=== PATIENT | male | born 1990 | race Caucasian/White ===

== ENCOUNTER 2021-12-07 23:56 | Emergency (ER) | payer OTHER ==
--- NOTE | 2021-12-08 00:02 | ED ---
Alcohol HPI - General Stated Complaint: Chest pain Time Seen by Provider: 12/07/21 23:58 Source: RN notes reviewed, old records reviewed Limitations: no limitations - History of Present Illness Initial Comments: This is a 31-year-old male DF for evaluation of chest pain. Patient has no medical history takes no medications presented with left-sided chest pain just prior to arrival. No nausea no shortness of breath no other complaints. No prior history of similar chest pain no trauma. 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 ROS Other: All systems not noted in ROS Statement are negative. General Exam General appearance: alert, in no apparent distress Head exam: Present: atraumatic, normocephalic, normal inspection Eye exam: Present: normal appearance, PERRL, EOMI. Absent: scleral icterus, conjunctival injection, periorbital swelling ENT exam: Present: normal exam, mucous membranes moist Neck exam: Present: normal inspection. Absent: tenderness, meningismus, lymphadenopathy Respiratory exam: Present: normal lung sounds bilaterally. Absent: respiratory distress, wheezes, rales, rhonchi, stridor Cardiovascular Exam: Present: regular rate, normal rhythm, normal heart sounds. Absent: systolic murmur, diastolic murmur, rubs, gallop, clicks GI/Abdominal exam: Present: soft, normal bowel sounds. Absent: distended, tenderness, guarding, rebound, rigid Extremities exam: Present: normal inspection, full ROM, normal capillary refill. Absent: tenderness, pedal edema, joint swelling, calf tenderness Back exam: Present: normal inspection Neurological exam: Present: alert, oriented X3, CN II-XII intact Psychiatric exam: Present: normal affect, normal mood Skin exam: Present: warm, dry, intact, normal color. Absent: rash Course Vital Signs 12/08/21 12/08/21 00:00 01:30 Temperature 97.9 F Pulse Rate 74 80 Respiratory 16 Rate Blood Pressure 117/69 130/68 O2 Sat by Pulse 98 Oximetry - Reevaluation(s) Reevaluation #1: 12/08/21 01:30 Medical records reviewed Reevaluation #2: 12/08/21 01:30 Patient informed results and questions answered Reevaluation #3: 12/08/21 01:30 Patient feels good for discharge home, symptoms improved Medical Decision Making - Medical Decision Making 31 male to the emergency department with atypical chest pain x-ray and EKG and negative. Patient is in no acute distress here in the ER and can be discharged - EKG Data -: EKG Interpreted by Me (EKG is sinus rhythm 61 DC 172 QRS 107 QTc 408) - Radiology Data Radiology results: report reviewed (Chest x-rays negative for acute disease), image reviewed Disposition Clinical Impression: Atypical chest pain, Chest pain Disposition: HOME SELF-CARE Condition: Fair Instructions (If sedation given, give patient instructions): Chest Pain (ED) Is patient prescribed a controlled substance at d/c from ED?: No Referrals: None,Stated [Primary Care Provider] - 1-2 days Time of Disposition: 01:30
[2021-12-08 00:08] VITALS: RESP 16; TEMP 97.9
--- NOTE | 2021-12-08 01:13 | XR ---
EXAMINATION TYPE: XR chest 1V portable DATE OF EXAM: 12/08/2021 COMPARISON: NONE HISTORY: Chest pain TECHNIQUE: Single view FINDINGS: Heart and mediastinum are normal. Lungs are clear. Diaphragm is normal. Bony thorax is inta ct. IMPRESSION: Normal chest
[2021-12-08 03:49] VITALS: BP 130/68; PULSE 80
== END 2021-12-08 01:30 | disposition home or self-care (01) ==
LOC: EC 23:56
DX: R07.89 Other chest pain (principal)
CPT/HCPCS: 71045; 93005; 99285

== ENCOUNTER 2022-08-26 18:16 | Inpatient (IN) | payer MEDICAID, OTHER ==
[2022-08-26 20:16] LABS: Amphetamine Screen,Urine Detected (NotDetected); Barbiturate Screen,Urine Not Detected (NotDetected); Benzodiazepines Screen,Urine Not Detected (NotDetected); Cocaine Screen,Urine Not Detected (NotDetected); Methadone Screen, Urine Not Detected (NotDetected); Opiate Screen,Urine Not Detected (NotDetected); Oxycodone Screen, Urine Not Detected (NotDetected); Phencyclidine Screen,Urine Not Detected (NotDetected); Tricyclic Antidepressant,Urine Not Detected (NotDetected); Urn Cannabinoid Scrn Not Detected (NotDetected)
--- NOTE | 2022-08-26 23:17 | ED ---
Psych HPI - General Chief Complaint: Psychiatric Symptoms Stated Complaint: Suicidal Time Seen by Provider: 08/26/22 18:25 Source: patient, EMS Mode of arrival: EMS - History of Present Illness Initial Comments: 32-year-old male presents to the emergency department reporting suicidal ideations. States that he has a plan to overdose on "dope". He did not do anything to harm himself today. Does admit to a history of depression. Does admit that he has been previously hospitalized for depression. He denies taking any prescription medications. Does not follow with a psychiatrist currently. Denies drug or alcohol use. No homicidal ideations. No other alleviating, precipitating or modifying factors - Related Data Previous Rx's Medication Instructions Recorded Multivitamins, Thera [Multivitamin 1 each PO DAILY 30 Days #30 tab 08/30/22 (formulary)] Nicotine 14Mg/24Hr Patch [Habitrol] 1 patch TRANSDERM DAILY 15 Days 08/30/22 #15 patch Pantoprazole [Protonix] 40 mg PO AC-BID 30 Days #60 tab 08/30/22 QUEtiapine [SEROquel] 150 mg PO HS 30 Days #90 tab 08/30/22 Sertraline [Zoloft] 150 mg PO DAILY 30 Days #90 tab 08/30/22 Thiamine [Vitamin B-1] 100 mg PO DAILY 30 Days #30 tab 08/30/22 Allergies Allergy/AdvReac Type Severity Reaction Status Date / Time No Known Allergies Allergy Unverified 08/26/22 19:54 Review of Systems ROS Statement: Those systems with pertinent positive or pertinent negative responses have been documented in the HPI. ROS Other: All systems not noted in ROS Statement are negative. Past Medical History Additional Past Medical History / Comment(s): heart murmur History of Any Multi-Drug Resistant Organisms: None Reported Past Psychological History: Anxiety, Depression Smoking Status: Current every day smoker Past Alcohol Use History: Occasional Past Drug Use History: Marijuana General Exam Limitations: no limitations General appearance: alert, in no apparent distress Head exam: Present: atraumatic, normocephalic, normal inspection Eye exam: Present: normal appearance, PERRL, EOMI. Absent: scleral icterus, conjunctival injection, periorbital swelling ENT exam: Present: normal exam, mucous membranes moist Neck exam: Present: normal inspection. Absent: tenderness, meningismus, lymphadenopathy Respiratory exam: Present: normal lung sounds bilaterally. Absent: respiratory distress, wheezes, rales, rhonchi, stridor Cardiovascular Exam: Present: regular rate, normal rhythm, normal heart sounds. Absent: systolic murmur, diastolic murmur, rubs, gallop, clicks GI/Abdominal exam: Present: soft, normal bowel sounds. Absent: distended, tenderness, guarding, rebound, rigid Extremities exam: Present: normal inspection, full ROM, normal capillary refill. Absent: tenderness, pedal edema, joint swelling, calf tenderness Back exam: Present: normal inspection Neurological exam: Present: alert, oriented X3, CN II-XII intact Psychiatric exam: Present: depressed, flat affect Skin exam: Present: warm, dry, intact, normal color. Absent: rash Course Vital Signs 08/26/22 08/26/22 18:23 22:38 Temperature 98.3 F Pulse Rate 89 95 Respiratory 18 18 Rate Blood Pressure 119/72 126/88 O2 Sat by Pulse 99 99 Oximetry Medical Decision Making - Medical Decision Making Was pt. sent in by a medical professional or institution ( PA, SLAT BASKET MAKER HELPER MACHINE, urgent care, hospital, or usp...) When possible be specific @ -No Did you speak to anyone other than the patient for history (EMS, parent, family, police, friend...)? What history was obtained from this source @ -Police Did you review nursing and triage notes (agree or disagree)? Why? @ -I reviewed and agree with nursing and triage notes Were old charts reviewed (outside hosp., previous admission, EMS record, old EKG, old radiological studies, urgent care reports/EKG's, usp records)? Report findings @ -No old charts were reviewed Differential Diagnosis (chest pain, altered mental status, abdominal pain women, abdominal pain men, vaginal bleeding, weakness, fever, dyspnea, syncope, headache, dizziness, GI bleed, back pain, seizure, CVA, palpatations, mental health, musculoskeletal)? @ -depression, anxiety, suicidal ideations, drug use EKG interpreted by me (3pts min.). @ -no X-rays interpreted by me (1pt min.). @ -no CT interpreted by me (1pt min.). @ -None done U/S interpreted by me (1pt. min.). @ -None done What testing was considered but not performed or refused? (CT, X-rays, U/S, labs)? Why? @ -None What meds were considered but not given or refused? Why? @ -None Did you discuss the management of the patient with other professionals (professionals i.e. , PA, SLAT BASKET MAKER HELPER MACHINE, lab, RT, psych nurse, social research assistant, guest house manager, teacher, armoured corps officer, egg caser)? Give summary @ -EPS nurse Was smoking cessation discussed for >3mins.? @ -No Was critical care preformed (if so, how long)? @ -No Were there social determinants of health that impacted care today? How? (Homelessness, low income, unemployed, alcoholism, drug addiction, transportation, low edu. Level, literacy, decrease access to med. care, penitentiary, rehab)? @ -homelessness Was there de-escalation of care discussed even if they declined (Discuss DNR or withdrawal of care, Hospice)? DNR status @ -No What co-morbidities impacted this encounter? (DM, HTN, Smoking, COPD, CAD, Cancer, CVA, ARF, Chemo, Hep., AIDS, mental health diagnosis, sleep apnea, morbid obesity)? @ -None Was patient admitted / discharged? Hospital course, mention meds given and route, prescriptions, significant lab abnormalities, going to OR and other pertinent info. @ -Upon arrival patient was placed into room 11. History and physical exam is performed. His BAT is negative. He is awaiting psychiatric evaluation at this time Undiagnosed new problem with uncertain prognosis? @ -No Drug Therapy requiring intensive monitoring for toxicity (Heparin, Nitro, Insulin, Cardizem)? @ -No Were any procedures done? @ -No Diagnosis/symptom? @ -acute suicidal ideations Acute, or Chronic, or Acute on Chronic? @ -acute Uncomplicated (without systemic symptoms) or Complicated (systemic symptoms)? @ -complicated Side effects of treatment? @ -No Exacerbation, Progression, or Severe Exacerbation? @ -No Poses a threat to life or bodily function? How? (Chest pain, [place], [place], pneumonia, PE, COPD, DKA, ARF, appy, cholecystitis, CVA, Diverticulitis, Homicidal, Suicidal, threat to staff... and all critical care pts) @ -yes - Lab Data Result diagrams: 08/28/22 06:59 08/28/22 06:59 Lab Results 08/26/22 08/26/22 Range/Units 19:20 19:20 Urine Color Yellow Urine Appearance Clear (Clear) Urine pH 7.0 (5.0-8.0) Ur Specific [place] 1.032 (1.001-1.035) Urine Protein Trace H (Negative) Urine Glucose (UA) Negative (Negative) Urine Ketones 1+ H (Negative) Urine Blood Negative (Negative) Urine Nitrite Negative (Negative) Urine Bilirubin Negative (Negative) Urine Urobilinogen 6.0 (<2.0) mg/dL Ur Leukocyte Esterase Negative (Negative) Urine Opiates Screen Not Detected (NotDetected) Ur Oxycodone Screen Not Detected (NotDetected) Urine Methadone Screen Not Detected (NotDetected) Ur Propoxyphene Screen Not Detected (NotDetected) Ur Barbiturates Screen Not Detected (NotDetected) U Tricyclic Antidepress Not Detected (NotDetected) Ur Phencyclidine Scrn Not Detected (NotDetected) Ur Amphetamines Screen Detected H (NotDetected) U Methamphetamines Scrn Detected H (NotDetected) U Benzodiazepines Scrn Not Detected (NotDetected) Urine Cocaine Screen Not Detected (NotDetected) U Marijuana (THC) Screen Not Detected (NotDetected) Disposition Clinical Impression: Depression Disposition: TRANSFER TO PSYCH HOSP/UNIT Condition: Stable Is patient prescribed a controlled substance at d/c from ED?: No
[2022-08-27] MEDS ORDERED: HALOPERIDOL LACTATE 5 MG/ML 1 ML VIAL IM PRN (00:44)
[2022-08-27] MEDS ORDERED: MAGNESIUM HYDROXIDE 2,400 MG/10 ML CUP PO PRN (00:44)
[2022-08-27] MEDS ORDERED: MAG HYDROX/AL HYDROX/SIMETH 30 ML CUP PO PRN (00:44)
[2022-08-27] MEDS ORDERED: LORazepam 1 MG TAB PO PRN (00:44)
[2022-08-27] MEDS ORDERED: ACETAMINOPHEN TAB 325 MG TAB PO PRN (00:44)
[2022-08-27] MEDS ORDERED: LORazepam 2 MG/ML INJ IM PRN ×2 (00:50→09:54)
[2022-08-27] MEDS ORDERED: haloperidoL 5 MG TAB PO PRN (00:51)
[2022-08-27 02:56] LABS: Appearance,Urine Clear (Clear); Bilirubin,Urine Negative (Negative); Blood,Urine Negative (Negative); Color,Urine Yellow; Glucose,Urine (UA) Negative (Negative); Ketones,Urine 1+ (Negative); Leukocyte Esterase,Urine Negative (Negative); Nitrite,Urine Negative (Negative); Protein,Urine Trace (Negative); Specific Gravity,Urine 1.032 (1.001-1.035)
[2022-08-27] MEDS: NICOTINE 14MG/24HR PATCH TRANSDERM SCH (03:07)
[2022-08-27] MEDS ORDERED: hydrOXYzine pamoate 25 MG CAP PO PRN (09:53)
[2022-08-27] MEDS ORDERED: SERTRALINE 50 MG TAB PO STA (11:16)
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
[2022-08-28] MEDS: QUEtiapine 200 MG TAB PO SCH ×2 (03:20→20:24)
[2022-08-28 06:42] VITALS: RESP 16
[2022-08-28 07:26] LABS: Basophils % (A) 1 %; Eosinophils # (A) 0.1 k/uL (0-0.7); Eosinophils % (A) 2 %; HCT 41.1 % (39.0-53.0); Lymphocytes # (A) 1.7 k/uL (1.0-4.8); Lymphocytes % (A) 31 %; MCH 31.5 pg (25.0-35.0); MCV 92.5 fL (80.0-100.0); Mean Platelet Volume 8.4; Monocytes # (A) 0.3 k/uL (0-1.0); Monocytes % (A) 5 %; Neutrophils # (A) 3.2 k/uL (1.3-7.7); Neutrophils % (A) 60 %; Platelet Count 178 k/uL (150-450); RBC 4.45 m/uL (4.30-5.90); RDW 13.6 % (11.5-15.5); WBC 5.4 k/uL (3.8-10.6)
[2022-08-28 08:08] LABS: ALT 53 U/L (4-49); AST 34 U/L (17-59); African American GFR (CKD) >90 (>60 ml/min/1.73 sqM); Albumin 3.6 g/dL (3.5-5.0); Alkaline Phosphatase 65 U/L (38-126); Anion Gap 2 mmol/L; Blood Urea Nitrogen 11 mg/dL (9-20); Calcium 8.8 mg/dL (8.4-10.2); Carbon Dioxide 30 mmol/L (22-30); Chloride 107 mmol/L (98-107); Glucose 94 mg/dL (74-99); Non-African American GFR(CKD) >90 (>60 ml/min/1.73 sqM); Potassium 4.5 mmol/L (3.5-5.1); Sodium 139 mmol/L (137-145); Total Bilirubin 0.6 mg/dL (0.2-1.3); Total Protein 6.2 g/dL (6.3-8.2)
[2022-08-28] MEDS: SERTRALINE 100 MG TAB PO SCH (08:16)
[2022-08-28] MEDS: NICOTINE 14MG/24HR PATCH TRANSDERM SCH (08:16)
[2022-08-28] MEDS: THIAMINE 100 MG TAB PO SCH (08:16)
[2022-08-28] MEDS: MULTIVITAMINS, THERA 1 EACH TAB PO SCH (08:16)
[2022-08-28 13:32] LABS: Chol/HDL Ratio 3.43 Ratio; LDL Cholesterol,Calculated 88.4 mg/dL (0.0-131.0); VLDL Calculation 19.34 mg/dL (5.00-40.00)
[2022-08-28] MEDS: PANTOPRAZOLE 40 MG TABLET PO SCH (20:44)
[2022-08-29] MEDS: MULTIVITAMINS, THERA 1 EACH TAB PO SCH (08:36)
[2022-08-29] MEDS: PANTOPRAZOLE 40 MG TABLET PO SCH ×2 (08:36→17:05)
[2022-08-29] MEDS: THIAMINE 100 MG TAB PO SCH (08:36)
[2022-08-29] MEDS: NICOTINE 14MG/24HR PATCH TRANSDERM SCH (08:36)
[2022-08-29] MEDS: SERTRALINE 100 MG TAB PO SCH (08:36)
--- NOTE | 2022-08-29 15:56 | P.PN ---
Progress Note - Text Progress Note Date: 08/28/22 Interval history: I evaluated patient on 08/28/22. Patient was seen walking the hallway and was directable and agreeable to speak with teletypewriter installer. He complains of having a difficulty time focusing, reports good sleep and fair appetite. His Zoloft was increased to 100 mg daily this morning for depression and anxiety. He complaints of anxious thoughts. He requests Ritalin and Adderall for inattention. We discussed using Vistaril for anxiety and he expresses agreement. At this time, patient denies any suicidal or homicidal ideation, intent or plan. Denies any auditory or visual hallucinations. Patient denies any side effects from the medications and has been compliant with meds. Mental status exam: General Appearance: Patient appears to be stated age, mildly disheveled. Behavior: No agitated behavior. Patient is calm and directable. Speech: Patient's speech is fluent and non-pressured. Mood/Affect: Mood is anxious, affect is congruent and constricted. Suicidality/Homicidality: Patient denies having any suicidal or homicidal ideation intent or plan. Perceptions: Patient denies any auditory or visual hallucinations. Though content/process: There is no evidence of any delusional thought content and thought process is linear and goal-directed. Memory and concentration: AOX3, grossly intact for the purposes of this session. Judgment and insight: Improving mildly Assessment/Plan: Continue with current diagnosis. Patient continues to meet criteria for inp atient psychiatric admission for symptom stabilization and safety. Zoloft increased to 100 mg daily this morning as ordered by primary psychiatrist. Continue Seroquel 200 mg QHS for mood. Continue Vistaril 50 mg Q6H PRN for anxiety; he has not been using this. Monitor for medication compliance and for any psychotropic medication side effects. Will continue to monitor ongoing response to treatment. Encouraged participation in milieu.
--- NOTE | 2022-08-29 17:13 | P.PN ---
Progress Note - Text Progress Note Date: 08/29/22 Interval history: I evaluated patient on 08/29/22. Patient was seen asleep in bed, reported he feels very tired, and later was seen walking in the hallway and was directable and agreeable to speak with copy writer. He complains of sleeping too much here and at home. He reports he sleeps between 12-17 hours per day. His sleep chart was reviewed and he slept about 14 hours on the night of 08/27-08/28 and about 10 hours on the night of 08/28-08/29. He reports his mood is good, but he feels "really tired" and "exhausted". He reports difficulty focusing and has difficulty staying awake. He again requests stimulants, but we discussed he can be referred to a sleep medicine clinic for sleep study to evaluate for ideopathic hypersomnia. At this time, patient denies any suicidal or homicidal ideation, intent or plan. Denies any auditory or visual hallucinations. Patient denies any side effects from the medications and has been compliant with meds. Mental status exam: General Appearance: Patient appears to be stated age, mildly disheveled. Behavior: No agitated behavior. Patient is calm and directable. Yawning. Speech: Patient's speech is fluent and non-pressured. Mood/Affect: Mood is anxious with irritable edge, affect is congruent and constricted. Suicidality/Homicidality: Patient denies having any suicidal or homicidal ideation intent or plan. Perceptions: Patient denies any auditory or visual hallucinations. Though content/process: There is no evidence of any delusional thought content and thought process is linear and goal-directed. Memory and concentration: AOX3, grossly intact for the purposes of this session. Judgment and insight: Improving mildly Assessment/Plan: Continue with current diagnosis. Patient continues to meet criteria for inpatient psychiatric admission for symptom stabilization and safety. Continue Zoloft 100 mg daily for depression/anxiety. Continue Seroquel 200 mg QHS for mood. Continue Vistaril 50 mg Q6H PRN for anxiety; he has not been using this. Monitor for medication compliance and for any psychotropic medication side ef fects. Recommend referral to sleep medicine for sleep study to evaluate for idiopathic hypersomnia. Will continue to monitor ongoing response to treatment. Encouraged participation in milieu.
[2022-08-29] MEDS: QUEtiapine 200 MG TAB PO SCH (20:31)
--- NOTE | 2022-08-29 22:18 | P.PN ---
Progress Note - Text Progress Note Date: 08/29/22 Attempted to see the patient in the MHU on 08/29 @ 2200. The patient refused to be seen or be evaluated.
[2022-08-30 06:35] VITALS: BP 104/59; PULSE 67; TEMP 97.6
[2022-08-30] MEDS: SERTRALINE 100 MG TAB PO SCH (08:22)
[2022-08-30] MEDS: NICOTINE 14MG/24HR PATCH TRANSDERM SCH (08:22)
[2022-08-30] MEDS: MULTIVITAMINS, THERA 1 EACH TAB PO SCH (08:22)
[2022-08-30] MEDS: THIAMINE 100 MG TAB PO SCH (08:22)
[2022-08-30] MEDS: PANTOPRAZOLE 40 MG TABLET PO SCH (08:22)
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
[2022-08-30] MEDS ORDERED: QUEtiapine 50 MG TAB PO SCH (21:00)
[2022-08-31] MEDS ORDERED: SERTRALINE 50 MG TAB PO SCH (09:00)
== END 2022-08-30 13:27 | disposition home or self-care (01) | DRG 751 ==
LOC: EC 18:16 → 3MHU 08-27 00:23
PROVIDERS: ADMIT Psychiatry & Neurology Psychiatry; ATTEND Psychiatry & Neurology Psychiatry
DX: F33.3 Major depressive disorder, recurrent, severe with psychotic symptoms (principal); R45.851 Suicidal ideations; F15.10 Other stimulant abuse, uncomplicated; F14.10 Cocaine abuse, uncomplicated; Z20.822 Contact with and (suspected) exposure to COVID-19; Z28.310 Unvaccinated for COVID-19; F10.90 Alcohol use, unspecified, uncomplicated; F90.9 Attention-deficit hyperactivity disorder, unspecified type; F41.9 Anxiety disorder, unspecified; F17.210 Nicotine dependence, cigarettes, uncomplicated; Z71.6 Tobacco abuse counseling; Z91.51 Personal history of suicidal behavior; Z59.00 Homelessness unspecified; Z59.6 Low income; Z71.41 Alcohol abuse counseling and surveillance of alcoholic; Z71.51 Drug abuse counseling and surveillance of drug abuser; Z71.89 Other specified counseling
CPT/HCPCS: 80053; 80061; 80306; 81003; 82075; 83036; 84443; 85025; 87635; 99285